=== PATIENT | female | born 1935 | race Two or more races ===

== ENCOUNTER 2024-07-30 07:18 | Emergency (ER) | payer MEDICARE, BC ==
[~2024-07-30] VITALS: Ht 149.9 cm; Wt 67.1 kg
[2024-07-30] MEDS ORDERED: LOPERAMIDE HCL (2 MG CAP) 2 MG CAPSULE ONE (08:34)
[2024-07-30] MEDS ORDERED: ONDANSETRON HCL/PF 4 MG/2 ML VIAL ONE (08:34)
[2024-07-30 08:45] LABS: BASOPHILS % (AUTO) 0.7 % (0.0-2.0); EOSINOPHILS % (AUTO) 1.3 % (0.0-6.0); HEMATOCRIT 38 % (33-45); HEMOGLOBIN 12.8 g/dL (11.5-14.8); LYMPHOCYTES # (AUTO) 0.8 K/uL (0.8-4.8); LYMPHOCYTES % (AUTO) 21.7 % (20.0-44.0); MEAN CORPUSCULAR HEMOGLOBIN 29 PG (26.0-33.0); MEAN CORPUSCULAR HGB CONC 33 g/dl (31.0-36.0); MEAN CORPUSCULAR VOLUME 87 fL (82-100); MONOCYTES # (AUTO) 0.5 K/uL (0.1-1.30); MONOCYTES % (AUTO) 13.9 % (2.0-12.0); NEUTROPHILS # (AUTO) 2.4 K/uL (1.8-8.9); NEUTROPHILS % (AUTO) 62.4 % (43.0-81.0); PLATELET COUNT (AUTO) 253 K/uL (150-450); RED CELL DISTRIBUTION WIDTH 13.9 % (11.5-15.0); WHITE BLOOD COUNT (AUTO) 3.9 K/uL (4.3-11.0)
[2024-07-30 09:09] LABS: ALBUMIN 3.6 g/dL (3.4-5.0); BILIRUBIN,DIRECT 0.2 mg/dL (0.0-0.2); BILIRUBIN,TOTAL 0.7 mg/dL (0.2-1.0); CALCIUM, SERUM 9.6 mg/dL (8.5-10.1); CREATININE 0.7 mg/dL (0.6-1.3); POTASSIUM 3.9 mmol/L (3.5-5.1); TOTAL PROTEIN, SERUM 6.9 g/dL (6.4-8.2)
[2024-07-30] MEDS: IV NS 0.9% 1,000 ML BAG IV ONE (09:23)
[2024-07-30] MEDS: LOPERAMIDE HCL (2 MG CAP) 2 MG CAPSULE PO ONE (09:24)
[2024-07-30] MEDS: ONDANSETRON HCL/PF 4 MG/2 ML VIAL IV ONE (09:25)
[2024-07-30 11:28] VITALS: BP 119/69; TEMP 98; O2SAT 96
== END 2024-07-30 11:29 | disposition home or self-care (01) ==
LOC: ER 07:29
DX: R11.2 Nausea with vomiting, unspecified (principal); R19.7 Diarrhea, unspecified; R10.84 Generalized abdominal pain; I10 Essential (primary) hypertension; J44.9 Chronic obstructive pulmonary disease, unspecified; Z60.2 Problems related to living alone
CPT/HCPCS: 99285; 74176; 96374; 96361; 85025; 80048; 83605; 83690; 80076; 36415; J2405; J7030